=== PATIENT | female | born 1965 | race Hispanic/Latino ===

== ENCOUNTER → 2018-11-06 | Outpatient (CLI) | payer MEDICAID ==
[~2018-11-06] MED LIST: CLON1TAB12 PO; FLUO40CA49 PO; GABA600T10 PO; LEVO112T7 PO; LISI-617 PO; METF-446 PO; PANT40TA25 PO; PRAV80TA21 PO
== END | disposition home or self-care (01) ==
LOC: RAH 10:49
PROVIDERS: ATTEND Internal Medicine
DX: R10.11 Right upper quadrant pain (principal); R11.10 Vomiting, unspecified; R14.0 Abdominal distension (gaseous)
CPT/HCPCS: 78264; A9541

== ENCOUNTER → 2019-07-29 | Outpatient (CLI) | payer OTHER | END | disposition home or self-care (01) | LOC: OIH 10:57 | PROVIDERS: ATTEND Internal Medicine Cardiovascular Disease | DX: Z13.6 Encounter for screening for cardiovascular disorders (principal) | CPT/HCPCS: 75571 ==

== ENCOUNTER → 2024-12-14 | Outpatient (CLI) | payer MEDICARE ==
[~2024-12-14] MED LIST changes: +GABA-1405 PO; -GABA600T10 PO; -LISI-617 PO; +LISI5TAB21 PO; -PANT40TA25 PO; +PANT40TA54 PO
--- NOTE | 2024-12-15 08:43 | HMCSR ---
APPROVED REPORT Bilateral Lower Extremity Venous Study for DVT., Venous Competence. Indications i87.1, i87.2 Vein Imaging CFV (R): Normal flow, augmentation and compression. No evidence of DVT. 9.7mm 756ms of reflux. SFJ (R): Normal flow, augmentation and compression. No evidence of DVT. FEM (R): Normal flow, augmentation and compression. No evidence of DVT. POP (R): Normal flow, augmentation and compression. No evidence of DVT. DFV (R): Normal flow, augmentation and compression. No evidence of DVT. PTV (R): Normal flow, augmentation and compression. No evidence of DVT. Peroneals (R): Normal flow, augmentation and compression. No evidence of DVT. CFV (L): Normal flow, augmentation and compression. No evidence of DVT. 8.3mm no reflux. SFJ (L): Normal flow, augmentation and compression. No evidence of DVT. FEM (L): Normal flow, augmentation and compression. No evidence of DVT. POP (L): Normal flow, augmentation and compression. No evidence of DVT. DFV (L): Normal flow, augmentation and compression. No evidence of DVT. PTV (L): Normal flow, augmentation and compression. No evidence of DVT. Peroneals (L): Normal flow, augmentation and compression. No evidence of DVT. Technologist Impression Deep Veins of Bilateral lower extremities appear patent and compressible without thrombus. No significant deep vein reflux seen. Superficial venous insufficiency seen at the junction of LGSV. RGSV junction 4.3mm 0.0ms thigh 3.0mm 217ms knee 2.7mm 0.0ms calf 2.1mm 0.0ms RSSV Prox 2.2mm 0.0ms Mid 2.0mm 0.0ms LGSV Junction 3.8mm 539ms thigh 3.7mm 0.0ms knee 4.5mm 0.0ms calf 1.9mm 0.0ms LSSV Prox 2.0mm 0.0ms Mid 1.5mm 0.0ms Conclusion Moderate deep venous reflux noted to right common femoral vein Severe superficial venous reflux of the left greater saphenous vein Clinical correlation recommended Conclusion Moderate deep venous reflux noted to right common femoral vein Severe superficial venous reflux of the left greater saphenous vein Clinical correlation recommended
== END | disposition home or self-care (01) ==
LOC: SHCH 08:37
PROVIDERS: ATTEND Internal Medicine Cardiovascular Disease
DX: I87.2 Venous insufficiency (chronic) (peripheral) (principal); I87.1 Compression of vein
CPT/HCPCS: 93970